=== PATIENT | female | born 1995 | race Native Hawaiian/Other Pacific Islander ===

== ENCOUNTER 2018-04-20 06:07 | Inpatient (IN) | payer OTHER ==
--- NOTE | 2018-04-20 06:12 | ED PDOC ---
Arrival/HPI - General Time Seen by Provider: 04/20/18 06:09 - History of Present Illness Narrative History of Present Illness (Text): 04/20/18 06:10 pt present to ed as transfer from another hospital for admission to [facility] suicidal ideation pt offers no complaints Past Medical History - Provider Review Nursing Documentation Reviewed: Yes - Reproductive Currently : No Family/Social History - Physician Review Nursing Documentation Reviewed: Yes Family/Social History: No Known Family HX Allergies/Home Meds Allergies/Adverse Reactions: Allergies No Known Allergies Allergy (Verified 04/20/18 06:13) Home Medications: Home Meds Medication Instructions Recorded Confirmed No Known Home Med 04/20/18 04/20/18 Review of Systems - Review of Systems Constitutional: Normal Eyes: Normal ENT: Normal Respiratory: Normal Cardiovascular: Normal Gastrointestinal: Normal Genitourinary Female: Normal Musculoskeletal: Normal Skin: Normal Neurological: Normal Endocrine: Normal Hemo/Lymphatic: Normal Psychiatric: Depression, Suicidal Ideation Physical Exam Vital Signs Reviewed: Yes Temperature: Afebrile Blood Pressure: Normal Pulse: Regular Respiratory Rate: Normal Appearance: Positive for: Well-Appearing, Non-Toxic, Comfortable Pain Distress: None Mental Status: Positive for: Alert and Oriented X 3 - Systems Exam Head: Present: Atraumatic, Normocephalic Pupils: Present: PERRL Extroacular Muscles: Present: EOMI Conjunctiva: Present: Normal Mouth: Present: Moist Mucous Membranes Neck: Present: Normal Range of Motion Respiratory/Chest: Present: Clear to Auscultation, Good Air Exchange. No: Respiratory Distress, Accessory Muscle Use Cardiovascular: Present: Regular Rate and Rhythm, Normal S1, S2. No: Murmurs Abdomen: No: Tenderness, Distention, Peritoneal Signs Back: Present: Normal Inspection Upper Extremity: Present: Normal Inspection. No: Cyanosis, Edema Lower Extremity: Present: Normal Inspection. No: Edema Neurological: Present: GCS=15, CN II-XII Intact, Speech Normal Skin: Present: Warm, Dry, Normal Color. No: Rashes Psychiatric: Present: Alert, Oriented x 3, Normal Insight, Normal Concentration, Depressed Mood, Suicidal Ideation Disposition/Present on Arrival - Present on Arrival Any Indicators Present on Arrival: No - Disposition Have Diagnosis and Disposition been Completed?: Yes Diagnosis: Suicidal ideation Disposition: HOSPITALIZED Disposition Time: 06:17 Condition: GOOD
[2018-04-20 06:14] VITALS: BMI 26.4
[2018-04-20 06:26] VITALS: O2SAT 98
[2018-04-20] MEDS ORDERED: Magnesium Hydroxide Susp 30 ml UD PO PRN (07:00)
[2018-04-20] MEDS ORDERED: Alum-Mag Hydrox-Simethicone Susp (30 mL) PO PRN (07:00)
[2018-04-20 09:20] LABS: GLUCOSE,FASTING 121 mg/dL (65-110); HDL CHOLESTEROL 58 mg/dL (29-60)
[2018-04-20 09:31] LABS: LDL CHOLESTEROL 84 mg/dL (0-129)
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
--- NOTE | 2018-04-20 15:47 | PCM.BM ---
<Carin Serna - Last Filed: 04/20/18 15:43> Treatment Plan Problems - Problems identified on initial assessmt HIGH RISK SUICIDE Date Initiated: 04/20/18 Time Initiated: 15:00 Assessment reference: NA Status: Active Priority: 1 INEFFECTIVE INDV COPING SKILLS Date Initiated: 04/20/18 Time Initiated: 15:00 Assessment reference: NA Status: Active Priority: 2 SOCIAL ISOLATION Date Initiated: 04/20/18 Time Initiated: 15:00 Assessment reference: NA Status: Active Priority: 3 ALTERED SLEEP PATTERN Date Initiated: 04/20/18 Time Initiated: 15:00 Assessment reference: NA Status: Active Priority: 4 Treatment assets and liabiliti Patient Assests: adapts well, cooperative, ADL independent, physically healthy, cognitively intact Patient Liabilities: financial problems, relationship conflicts - Milieu Protocol Maintain good personal hygiene: every shift Encourage regular showers, every shift Remind patient to perform daily oral care, every shift Assist patient to perform ADL's Maintain personal safety: daily Educate patient to report safety concerns to staff, daily Monitor environment for contraband/sharps Medication safety: Monitor for expected outcome, potential side effects: daily, Assess barriers to learning: daily, Assess readiness for medication education: daily Milieu Narrative: Milieu/structure/supportive therapy SW consultation for discharge plan and social issues Med management: Prozac 10 mg daily for depression, anxiety Sonata 5 mg at the nighttime as needed for insomnia ativan 2 mg 3 times a day as needed for possible alcohol withdrawals Multivitamins, thiamine, folic acid Family involvement Follow up on labs Will monitor closely Pt was educated about risk/benefits and alternatives of medications, coping strategies (safety plan, suicide prevention), relapse prevention, importance of follow up with psychiatrist and therapist, stay away from drugs/alcohol/smoking Family Contact Family involvement: Family/SO is involved Family contact: Patient agrees to contact Discharge/Continuing Care - Education Needs Education Needs: Patient Medication, Patient Diagnosis/Disease Process, Patient Coping Skills, Patient Placement options, Patient Community resources, Patient Activities of Daily Living, Patient Pain, Patient Nutrition, Patient Health Practices/Safety, Patient Personal Hygiene/Grooming, Patient Aftercare Safety Plan - Discharge Discharge Criteria: Tolerates medication w/o severe side effects, Free of Suicidal thoughts, Free of agitation, Normal sleep pattern, Ability to care for self, Reduction of target symptoms Discharge to:: Home - Treatment Team Participation Patient/Family/SO Statement: Milieu/structure/supportive therapy SW consultation for discharge plan and social issues Med management: Prozac 10 mg daily for depression, anxiety Sonata 5 mg at the nighttime as needed for insomnia ativan 2 mg 3 times a day as needed for possible alcohol withdrawals Multivitamins, thiamine, folic acid Family involvement Follow up on labs Will monitor closely Pt was educated about risk/benefits and alternatives of medications, coping strategies (safety plan, suicide prevention), relapse prevention, importance of follow up with psychiatrist and therapist, stay away from drugs/alcohol/smoking <Stacy Pitt - Last Filed: 04/21/18 11:29> Treatment Plan Problems - Problems identified on initial assessmt HIGH RISK SUICIDE Date Initiated: 04/20/18 Time Initiated: 15:00 Assessment reference: NA Status: Active Priority: 1 INEFFECTIVE INDV COPING SKILLS Date Initiated: 04/20/18 Time Initiated: 15:00 Assessment reference: NA Status: Active Priority: 2 SOCIAL ISOLATION Date Initiated: 04/20/18 Time Initiated: 15:00 Assessment reference: NA Status: Active Priority: 3 ALTERED SLEEP PATTERN Date Initiated: 04/20/18 Time Initiated: 15:00 Assessment reference: NA Status: Active Priority: 4
[2018-04-20] MEDS: Multivitamin With Minerals Tab PO SCH (16:38)
--- NOTE | 2018-04-20 17:42 | PCM.BM ---
Treatment Plan Problems - Problems identified on initial assessmt HIGH RISK SUICIDE Date Initiated: 04/20/18 Time Initiated: 15:00 Assessment reference: NA Status: Active Priority: 1 INEFFECTIVE INDV COPING SKILLS Date Initiated: 04/20/18 Time Initiated: 15:00 Assessment reference: NA Status: Active Priority: 2 SOCIAL ISOLATION Date Initiated: 04/20/18 Time Initiated: 15:00 Assessment reference: NA Status: Active Priority: 3 ALTERED SLEEP PATTERN Date Initiated: 04/20/18 Time Initiated: 15:00 Assessment reference: NA Status: Active Priority: 4 Depression suicidal Date Initiated: 04/20/18 Time Initiated: 09:00 Assessment reference: NA Status: Active Priority: 1 Comment: frustration Ineffective Coping Date Initiated: 04/20/18 Time Initiated: 09:00 Assessment reference: NA Status: Active Priority: 2 Comment: Inabiltity to cope with living situation Social isolation Date Initiated: 04/20/18 Time Initiated: 09:00 Assessment reference: NA Status: Active Priority: 3 Comment: feeling lonliness Altered sleep patter Date Initiated: 04/20/18 Time Initiated: 09:00 Assessment reference: NA Status: Active Priority: 4 Comment: Inabilty to sleep properly during night time. Treatment assets and liabiliti Patient Assests: adapts well, cooperative, insightful, motivated, ADL independent, physically healthy, negotiates basic needs, cognitively intact Patient Liabilities: live alone, financial problems, relationship conflicts - Milieu Protocol Maintain good personal hygiene: every shift Encourage regular showers, every shift Remind patient to perform daily oral care, every shift Assist patient to perform ADL's Maintain personal safety: daily Educate patient to report safety concerns to staff, daily Monitor environment for contraband/sharps Medication safety: Monitor for expected outcome, potential side effects: daily, Assess barriers to learning: daily, Assess readiness for medication education: daily Milieu Narrative: Milieu/structure/supportive therapy SW consultation for discharge plan and social issues Med management: Prozac 10 mg daily for depression, anxiety Sonata 5 mg at the nighttime as needed for insomnia ativan 2 mg 3 times a day as needed for possible alcohol withdrawals Multivitamins, thiamine, folic acid Family involvement Follow up on labs Will monitor closely Pt was educated about risk/benefits and alternatives of medications, coping strategies (safety plan, suicide prevention), relapse prevention, importance of follow up with psychiatrist and therapist, stay away from drugs/alcohol/smoking Family Contact Family involvement: Family/SO is involved Family contact: Patient agrees to contact Discharge/Continuing Care - Education Needs Education Needs: Patient Medication, Patient Diagnosis/Disease Process, Patient Coping Skills, Patient Placement options, Patient Community resources, Patient Activities of Daily Living, Patient Pain, Patient Nutrition, Patient Health Practices/Safety, Patient Personal Hygiene/Grooming, Patient Aftercare Safety Plan - Discharge Discharge Criteria: Tolerates medication w/o severe side effects, Free of Suicidal thoughts, Free of agitation, Normal sleep pattern, Ability to care for self, Reduction of target symptoms Discharge to:: Home - Treatment Team Participation Patient/Family/SO Statement: Milieu/structure/supportive therapy SW consultation for discharge plan and social issues Med management: Prozac 10 mg daily for depression, anxiety Sonata 5 mg at the nighttime as needed for insomnia ativan 2 mg 3 times a day as needed for possible alcohol withdrawals Multivitamins, thiamine, folic acid Family involvement Follow up on labs Will monitor closely Pt was educated about risk/benefits and alternatives of medications, coping strategies (safety plan, suicide prevention), relapse prevention, importance of follow up with psychiatrist and therapist, stay away from drugs/alcohol/smoking
[2018-04-21 07:24] VITALS: RESP 20
[2018-04-21] MEDS: Multivitamin With Minerals Tab PO SCH (09:27)
--- NOTE | 2018-04-21 15:58 | PCM.PYCHPN ---
Psychiatric Progress Note - Psychiatric Progress Note Patient seen today, length of contact: 30 minutes Patient Chief Complaint: "Medications make me feel numb" Problems Identified/Issues Discussed: Risk/benefits and alternatives of medications discussed, suicide/ homicide prevention, past psychiatric h/o, current psychiatric symptoms, medical problems, risk/benefits and alternatives of medications, medications compliance, coping strategies, substance abuse h/o, relapse prevention, importance of follow up with psychiatrist and therapist, discharge plan. Medical Problems: Patient denies any major medical issues, patient was seen by medical team in the emergency room. Diagnostic Results: Lab Results 04/20/18 18:50: Urine HCG, Qual Negative 04/20/18 07:00: RPR Nonreactive 04/20/18 07:00: TSH 3rd Generation 1.28 04/20/18 07:00: Fasting Glucose 121 H, Triglycerides 72, Cholesterol 166, LDL Ch olesterol Direct 84, HDL Cholesterol 58 Vital Signs Temp Pulse Resp BP Pulse Ox 04/21/18 07:24 98.3 F 86 20 98/61 L 04/20/18 07:00 18 04/20/18 06:58 97.6 F 89 20 117/73 04/20/18 06:16 98 F 88 17 122/68 98 DSM 5 Symptoms Update: shortly pt is 22yo female, self reported h/o depression/anxiety, denied previous treatments, denied h/o psychiatric admissions, multiple suicidal gestures in the past, was transferred from the [facility] for evaluation of depressive symptoms, possible suicidal ideation with the plan to either cut herself or as per [place] record to crash her car. Please see [facility] record for more detailed information. Treatment team meeting room, hygiene is improving patient was less tearful to compare with yesterday initial evaluation. Patient reported that he feels that medication is making her feel "numb", patient reported that at times she feels hopeless and helpless and overwhelmed with the stress which is waiting outside. Her family does not note that she is in the hospital, patient does not want her family or her ex-boyfriend to be involved into her care. Patient reported that she did not sleep well, patient was educated about medications, patient is willing to increase her dose of Prozac, risk, benefits, alternatives were discussed with the patient. Patient tolerates medications well, no side effects observed or reported, aims0 no EPS. Impression: Rule out major depressive disorder Rule out borderline personality disorder Alcohol abuse Medication Change: Yes (Prozac increased) Medical Record Reviewed: Yes Consults ordered or reviewed: Patient denied any medical complaints. Mental Status Examination - Cognitive Function Orientation: Person, Place, Situation Memory: Intact Attention: Poor Concentration: Poor Association: WNL Fund of Knowledge: WNL - Mood Mood: Depressed, Anxious - Affect Affect: Constricted (Tearful), Flat - Formal Thought Process Formal Thought Process: No Impairment - Suicidal Ideation Suicidal Ideation: No - Homicidal Ideation Homicidal Ideation: No Goal/Treatment Plan - Goal/Treatment Plan Need for Continued Stay: Remain at risks for inpatient hospitalization, Severe depression anxiety, Discharge may exacerbated symptoms, Severe functional impairment Progress Toward Problem(s) and Goals/Treatment Plan: Milieu/structure/supportive therapy SW consultation for discharge plan and social issues Med management: Prozac 20 mg daily for depression, anxiety Sonata 5 mg at the nighttime as needed for insomnia ativan 2 mg 3 times a day as needed for possible alcohol withdrawals Multivitamins, thiamine, folic acid Family involvement Follow up on labs Will monitor closely Pt was educated about risk/benefits and alternatives of medications, coping strategies (safety plan, suicide prevention), relapse prevention, importance of follow up with psychiatrist and therapist, stay away from drugs/alcohol/smoking Estimated Date of D/C: 04/24/18
[2018-04-22] MEDS: Multivitamin With Minerals Tab PO SCH (09:24)
--- NOTE | 2018-04-22 15:06 | PCM.PYCHPN ---
Psychiatric Progress Note - Psychiatric Progress Note Patient seen today, length of contact: 30 minutes Patient Chief Complaint: "I feel better" Problems Identified/Issues Discussed: Risk/benefits and alternatives of medications discussed, suicide/ homicide prevention, past psychiatric h/o, current psychiatric symptoms, medical problems, risk/benefits and alternatives of medications, medications compliance, coping strategies, substance abuse h/o, relapse prevention, importance of follow up with psychiatrist and therapist, discharge plan. Medical Problems: Patient denies any major medical issues, patient was seen by medical team in the emergency room. Diagnostic Results: Lab Results 04/20/18 18:50: Urine HCG, Qual Negative 04/20/18 07:00: RPR Nonreactive 04/20/18 07:00: TSH 3rd Generation 1.28 04/20/18 07:00: Fasting Glucose 121 H, Triglycerides 72, Cholesterol 166, LDL Cholesterol Direct 84, HDL Cholesterol 58 Vital Signs Temp Pulse Resp BP Pulse Ox 04/21/18 07:24 98.3 F 86 20 98/61 L 04/20/18 07:00 18 04/20/18 06:58 97.6 F 89 20 117/73 04/20/18 06:16 98 F 88 17 122/68 98 DSM 5 Symptoms Update: shortly pt is 22yo female, self reported h/o depression/anxiety, denied previous treatments, denied h/o psychiatric admissions, multiple suicidal gestures in the past, was transferred from the [facility] for evaluation of depressive symptoms, possible suicidal ideation with the plan to either cut herself or as per [place] record to crash her car. Please see all is a Medical Center record for more detailed information. Patient was seen at the day treatment area, hygiene is improving patient's affect was more reactive, patient was not crying today, patient appears to be mildly anxious about her living situation. Patient reported that she likes medications which she is currently taking, patient denied any side effects. Her family does not note that she is in the hospital, patient does not want her family or her ex-boyfriend to be involved into her care. Patient reported that she did not sleep well, at the same time patient does not want to be on any medication for sleep. Patient tolerates medications well, no side effects observed or reported, aims0 no EPS. Impression: Rule out major depressive disorder Rule out borderline personality disorder Alcohol abuse Medication Change: Yes (Prozac increased April 21/2019) Medical Record Reviewed: Yes Consults ordered or reviewed: Patient denied any medical complaints. Mental Status Examination - Cognitive Function Orientation: Person, Place, Situation Memory: Intact Attention: Poor (Improving) Concentration: Poor (improving) Association: WNL Fund of Knowledge: WNL - Mood Mood: Depressed ("I am little better"), Anxious - Affect Affect: Constricted (but more reactive and mood congruent) - Speech Speech: Appropriate - Formal Thought Process Formal Thought Process: No Impairment - Suicidal Ideation Suicidal Ideation: No - Homicidal Ideation Homicidal Ideation: No Goal/Treatment Plan - Goal/Treatment Plan Need for Continued Stay: Remain at risks for inpatient hospitalization, Severe depression anxiety, Discharge may exacerbated symptoms, Severe functional impairment Progress Toward Problem(s) and Goals/Treatment Plan: Milieu/structure/supportive therapy SW consultation for discharge plan and social issues Med management: Prozac 20 mg daily for depression, anxiety Sonata 5 mg at the nighttime as needed for insomnia ativan 2 mg 3 times a day as needed for possible alcohol withdrawals Multivitamins, thiamine, folic acid Family involvement Follow up on labs Will monitor closely Pt was educated about risk/benefits and alternatives of medications, coping strategies (safety plan, suicide prevention), relapse prevention, importance of follow up with psychiatrist and therapist, stay away from drugs/alcohol/smoking Estimated Date of D/C: 04/24/18
[2018-04-23 07:06] VITALS: BP 103/67; PULSE 100; TEMP 98.6
[2018-04-23] MEDS: Multivitamin With Minerals Tab PO SCH (09:54)
--- NOTE | 2018-04-23 13:51 | PCM.PYCHDC ---
Mental Status Examination - Mental Status Examination Orientation: Person, Place, Situation, Time Memory: Intact Mood: Neutral Affect: Constricted (but reactive and mood congruent) Speech: Appropriate Attention: WNL Concentration: WNL Association: WNL Fund of Knowledge: WNL Formal Thought Process: No Impairment Description of patient's judgement and insight: Pt has improved insight into mental and medical illness, pt was compliant with medications and unit rules and regulations, pt was attending therapy groups, was calm, cooperative, socially appropriate, no behavioral incidents, no agitation, no aggression. Psychotic Thoughts and Behaviors: Pt denied v/a/t hallucinations, denied paranoid ideations, pt does not appear to be psychotic, and thought process is goal directed. Suicidal Ideation: No Current Homicidal Ideation?: No Plan: pt adamantly denied thoughts of harming self or others denied intent or plan. Discharge Summary - Discharge Note Reason for Hospitalization: Patient was transferred from [facility] for evaluation and stabilization of depressive symptoms and possible suicidal ideation, please see record for additional information. Psychiatric History (includes Medical, Family, Personal Hx): As per HPI Laboratory Data: Lab Results 04/20/18 18:50: Urine HCG, Qual Negative 04/20/18 07:00: RPR Nonreactive 04/20/18 07:00: TSH 3rd Generation 1.28 04/20/18 07:00: Fasting Glucose 121 H, Triglycerides 72, Cholesterol 166, LDL Cholesterol Direct 84, HDL Cholesterol 58 Vital Signs Temp Pulse Resp BP Pulse Ox 04/23/18 07:04 98.6 F 100 H 20 103/67 04/22/18 15:00 76 20 124/80 04/22/18 07:22 97.9 F 85 20 102/66 04/21/18 16:00 76 109/61 04/21/18 07:24 98.3 F 86 20 98/61 L 04/20/18 07:00 18 04/20/18 06:58 97.6 F 89 20 117/73 04/20/18 06:16 98 F 88 17 122/68 98 Consultations:: List each consultation separately and include: 1. Reason for request. 2. Findings. 3. Follow-up Consultations: Patient denied any medical complaints. Patient has healthy, did not require medical consultation Summary of Hospital Course include:: 1. Description of specific treatment plan utilized for patients during their course of treatmen. 2. Summarize the time- course for resolution of acute symptoms and/or regressed behaviors. 3. Describe issues identified and worked on during hospitalization. 4. Describe medication utilized. 5. Describe medical problems identified and treated. 6. Reassessment of suicide risk Summary of Hospital Course: shortly pt is 22yo female, self reported h/o depression/anxiety, denied previous treatments, denied h/o psychiatric admissions, multiple suicidal gestures in the past, was transferred from the [facility] for evaluation of depressive symptoms, possible suicidal ideation with the plan to either cut herself or as per [place] record to crash her car. Please see record from [facility] for more detailed information. Admission patient presented to be depressed, emotional, anxious, was not able to contract for safety, please see admission note for more detailed information. Patient was stabilized on the following medications: Prozac 20 mg for depression and anxiety Multivitamin/thiamine/folic acid As needed Sonata but patient took this medication only once for insomnia. Patient tolerated medications well, no side effects observed or reported, aims 0, no EPS. Patient did not want her family to be involved in to her care, patient broke up with a boyfriend and did not want him to be involved either, patient has one friend who visited patient in the unit. Overall patient improved, sleep is much better, mood is more stable, patient is more hopeful, wants to go back to work, patient is not psychotic, not agitated, not aggressive. Over the course of this hospitalization pt was attending groups, pt also had medication management, had therapeutic milieu. Patient reached maximum effect from this hospitalization and deemed ready for discharge. At the time of the discharge patient pose no imminent danger to self or others, will be following up at [facility], information about follow up appointment, time and address provided to the pt, (see note for more detailed information). It is a patient responsibility to follow up with outpatient clinic, PMD as well as specialists In case patient will need to obtain results of studies pending at discharge, patient was provided with contact information of Psychiatric Inpatient unit [phone] as well as Medical Record Department [phone], as well as [facility] [place] [facility] [employer] team [phone]. Patient denied smoking Counseling about alcohol cessation provided AA meetings programs information was provided by the Patient refused to have naltrexone treatment because she denied any alcohol cravings and she does not believe that she has alcohol addiction problem pt was provided with prescriptions for two weeks and one refill for psychotropic meds and one week for medical meds (see medication reconciliation form) Pt was educated about safety plan in case of worsening of symptoms or in case of suicidal or homicidal ideation call 911 or go to the nearest ER, also was educated to take meds as prescribed and stay away from drugs, pt verbalized understanding. Lab Results 04/20/18 07:00: TSH 3rd Generation 1.28 04/20/18 07:00: Fasting Glucose 121 H, Triglycerides 72, Cholesterol 166, LDL Cholesterol Direct 84, HDL Cholesterol 58 Vital Signs Temp Pulse Resp BP Pulse Ox 04/20/18 07:00 18 04/20/18 06:58 97.6 F 89 20 117/73 04/20/18 06:16 98 F 88 17 122/68 98 As per [facility] record, pt's labs were within normal limits, vitals within normal limits UDS was negative for any substances Urine test was negative - Diagnosis (1) Alcohol abuse Current Visit: Yes Status: Chronic Priority: Medium (2) MDD (major depressive disorder) Current Visit: Yes Status: Acute Priority: High - Final Diagnosis (DSM 5) Condition upon Discharge: GOOD Disposition: HOME/ ROUTINE Follow-up Treatment Plan: At the time of the discharge patient pose no imminent danger to self or others, will be following up at [facility], information about follow up appointment, time and address provided to the pt, (see note for more detailed information). It is a patient responsibility to follow up with outpatient clinic, PMD as well as specialists In case patient will need to obtain results of studies pending at discharge, patient was provided with contact information of Psychiatric Inpatient unit [phone] as well as Medical Record Department [phone], as well as [facility] [place] [facility] [employer] team [phone]. Patient denied smoking Counseling about alcohol cessation provided AA meetings programs information was provided by the pt was provided with prescriptions for two weeks and one refill for psychotropic meds and one week for medical meds (see medication reconciliation form) Pt was educated about safety plan in case of worsening of symptoms or in case of suicidal or homicidal ideation call 911 or go to the nearest ER, also was educated to take meds as prescribed and stay away from drugs, pt verbalized understanding. Prescriptions/Medication Reconciliation: FLUoxetine [Prozac] 20 mg PO DAILY #14 cap Folic Acid 1 mg PO DAILY #14 tab Multimineral/Multivitamin [Therapeutic-M Tab] 1 tab PO DAILY #14 tab Thiamine [Vitamin B1 Tab] 100 mg PO DAILY #14 tab - Smoking Cessation Smoking Cessation Medication prescribed: No Reason for not providing: Patient denied smoking - Antipsychotic Medications Pt discharged on 2 or more routine antipsychotic medications: No
== END 2018-04-23 15:55 | disposition home or self-care (01) | DRG 754 ==
LOC: ED 06:07 → ERH 06:17 → PSYC 06:41
PROVIDERS: ADMIT Psychiatry & Neurology Psychiatry; ATTEND Psychiatry & Neurology Psychiatry
PROC: GZ3ZZZZ Medication Management (ICD-10-PCS; principal; 2018-04-20)
DX: F32.9 Major depressive disorder, single episode, unspecified (principal); R45.851 Suicidal ideations; F10.10 Alcohol abuse, uncomplicated; F41.9 Anxiety disorder, unspecified; G47.00 Insomnia, unspecified; Z81.8 Family history of other mental and behavioral disorders